=== PATIENT | male | born 1985 | race Caucasian/White ===

== ENCOUNTER 2017-07-11 11:13 | Emergency (ER) | payer OTHER ==
[2017-07-11 11:28] VITALS: BP 142/86; PULSE 73; TEMP 98.5; BMI 30.8
[2017-07-11] MEDS ORDERED: KETOROLAC TROMETHAMINE 60 MG/2 ML VIAL IM ONE (11:44)
--- NOTE | 2017-07-11 11:52 | PDOC ---
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 Pt denies any past history of back pain or trauma. Pt also c/o hives on and off for one week. Pt believes it may be from a supplement he was taking. no SOB or trouble breathing. Occurred: reports: this morning Severity: reports: mild Pain Location: reports: back (low) Modifying Factors: improves with: None Associated Symptoms (Fall): denies symptoms Past History - Past Medical History Allergies/Adverse Reactions: Allergies Allergy/AdvReac Type Severity Reaction Status Date / Time No Known Allergies Allergy Verified 07/11/17 11:28 Home Medications: Ambulatory Orders Cyclobenzaprine HCl [Flexeril 10 mg] 5 mg PO TID PRN #12 tablet 07/11/17 Naproxen [Naprosyn -] 500 mg PO BID PRN #14 tablet 07/11/17 - Psycho/Social/Smoking Cessation Hx Anxiety: No Suicidal Ideation: No Smoking History: Never smoked Have you smoked in the past 12 months: No Information on smoking cessation initiated: No Hx Alcohol Use: No Drug/Substance Use Hx: No Substance Use Type: None Trauma Specific PMHX - Complaint Specific PMHX Arthritis: No Back Injury: No Neck Injury: No Hx Sacro Iliac Joint Dysfunction: No Review of Systems - Review of Systems Able to Perform ROS?: Yes Is the patient limited Nigerien proficient: No Constitutional: No: Symptoms Reported HEENTM: No: Symptoms Reported Respiratory: No: Symptoms reported Cardiac (ROS): No: Symptoms Reported ABD/GI: No: Symptoms Reported : No: Symptoms Reported Musculoskeletal: Yes: See HPI, Back Pain Integumentary: Yes: See HPI *Physical Exam - Vital Signs Last Vital Signs Temp Pulse Resp BP Pulse Ox 98.5 F 73 18 142/86 100 07/11/17 11:15 07/11/17 11:15 07/11/17 11:15 07/11/17 11:15 07/11/17 11:15 - Physical Exam General Appearance: Yes: Nourished, Appropriately Dressed HEENT: positive: EOMI, RAZ, TMs Normal, Pharynx Normal Neck: positive: Supple. negative: Tender Respiratory/Chest: positive: Lungs Clear, Normal Breath Sounds Cardiovascular: positive: Regular Rhythm, Regular Rate Gastrointestinal/Abdominal: positive: Normal Bowel Sounds, Soft Musculoskeletal: positive: Normal Inspection, Decreased Range of Motion (ttp lumbar paraspinal soft tissue neg vetebral tenderness, neg SLR ). 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 pt ambulatory steady gait will give toradol now dc with naprosyn and flexeril for muscle spasm, pt aware to take at bedtime pt will be out of work until cleared by employee health 07/11/17 12:00 *DC/Admit/Observation/Transfer Diagnosis at time of Disposition: Hives Back pain Qualifiers: Back pain location: low back pain Chronicity: acute Back pain laterality: midline Sciatica presence: without sciatica Qualified Code(s): M54.5 - Low back pain - Prescriptions Prescriptions: Cyclobenzaprine HCl [Flexeril 10 mg] 5 mg PO TID PRN #12 tablet PRN Reason: Muscle Spasms Naproxen [Naprosyn -] 500 mg PO BID PRN #14 tablet PRN Reason: Back Pain - Referrals Referrals: Camilo Neves [Primary Care Provider] - - Patient Instructions Additional Instructions: warm heating pad to low back take the naprosyn for pain take the flexeril for muscle spasm you can take a non drowsy antihistamine such as claritin or zyrtec 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
== END 2017-07-11 12:03 | disposition home or self-care (01) ==
LOC: JERFT 11:13
PROC: 3E0233Z Introduction of Anti-inflammatory into Muscle, Percutaneous Approach (ICD-10-PCS; principal; 2017-07-11)
DX: M54.5 Low back pain (principal); L50.9 Urticaria, unspecified
CPT/HCPCS: 99281-25

== ENCOUNTER 2017-09-19 21:05 | Emergency (ER) | payer OTHER ==
[2017-09-19 21:09] VITALS: BP 144/69; PULSE 72; BMI 30.8
--- NOTE | 2017-09-19 22:45 | PDOC ---
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 Now with right lateral ankle edema and pain. Past Medical History: Denies. Allergies: No known allergies Medications: None Family History: Non-contributory Social History: Denies smoking, alcohol use, or IVDU Review of Systems GENERAL/CONSTITUTIONAL: No fever or chills. No weakness. No weight change. HEAD, EYES, EARS, NOSE AND THROAT: No change in vision. No ear pain or discharge. No sore throat. CARDIOVASCULAR: No chest pain or shortness of breath. RESPIRATORY: No cough, wheezing, or hemoptysis. GASTROINTESTINAL: No nausea, vomiting, diarrhea or constipation. No rectal bleeding. GENITOURINARY: No dysuria, frequency, or change in urination. MUSCULOSKELETAL: Right lateral ankle edema . No neck or back pain. SKIN : No rash or easy bruising. NEUROLOGIC: No headache, vertigo, loss of consciousness, or loss of sensation. HEMATOLOGIC/LYMPHATIC: No anemia, easy bleeding, or history of blood clots. ALLERGIC/IMMUNOLOGIC: No hives or skin allergy. No latex allergy. Physical Exam: GENERAL: The patient is awake, alert, and fully oriented, in no acute distress. EYES: Pupils equal, round and reactive to light, extraocular movements intact, sclera anicteric, conjunctiva clear. ENT: Ears normal, nares patent, oropharynx clear without exudates. Moist mucous membranes. No uvula deviation NECK: Normal range of motion, supple without lymphadenopathy, JVD, or masses. LUNGS: Breath sounds equal, clear to auscultation bilaterally. No wheezes, and no crackles. HEART: Regular rate and rhythm, normal S1 and S2 without murmur, rub or gallop. ABDOMEN: Soft, nontender, normoactive bowel sounds. No guarding, no rebound. No masses. No bruising or abrasions MUSCULOSKELETAL: Decreased ROM with associated pain, no bruising, no erythema, mild edema. No clubbing or cyanosis. No cords, erythema, or tenderness. No CVA Tenderness with fist. NEUROLOGICAL: Cranial nerves II through XII grossly intact. Normal speech, normal gait. SKIN: Warm, Dry, normal turgor, no rashes or lesions noted. Edema and erythema to the right lateral ankle. Past History - Past Medical History Allergies/Adverse Reactions: Allergies Allergy/AdvReac Type Severity Reaction Status Date / Time No Known Allergies Allergy Verified 09/19/17 21:09 Home Medications: Ambulatory Orders Ibuprofen [Motrin -] 400 mg PO QID #28 tablet 09/19/17 Other medical history: denies - Suicide/Smoking/Psychosocial Hx Smoking History: Never smoked Have you smoked in the past 12 months: No Hx Alcohol Use: No Drug/Substance Use Hx: No Substance Use Type: None *Physical Exam - Vital Signs Last Vital Signs Temp Pulse Resp BP Pulse Ox 72 18 144/69 99 09/19/17 21:07 09/19/17 21:07 09/19/17 21:07 09/19/17 21:07 ED Treatment Course - RADIOLOGY Radiology Studies Ordered: Category Date Time Status ANKLE & FOOT-RIGHT* [RAD] Stat Radiology 09/19/17 21:36 Taken Medical Decision Making - Medical Decision Making 09/19/17 22:45 A/P: Patient with right ankle injury, there is edema to right lateral ankle without bruising or erythema. Unable to ambulate with a limp, Carl wrap and air placed on, x-ray is negative for acute fracture. Patient to ice and elevate when at rest, follow-up with orthopedics in one week if pain persists. *DC/Admit/Observation/Transfer Diagnosis at time of Disposition: Ankle injury Qualifiers: Encounter type: initial encounter Laterality: right Qualified Code(s): S99.911A - Unspecified injury of right ankle, initial encounter; S99.911A - Unspecified injury of right ankle, initial encounter - Discharge Dispostion Disposition: HOME Condition at time of disposition: Good Admit: No - Prescriptions Prescriptions: Ibuprofen [Motrin -] 400 mg PO QID #28 tablet - Referrals Referrals: Brett Hernández MD [Staff Physician] - - Patient Instructions Printed Discharge Instructions: DI for Ankle Sprain Additional Instructions: 1. Please return to the emergency department with any redness, swelling, increased pain, or any other concerns. 2. Keep splint on. 3. Please follow up in the office of Dr. Hernández within a week if pain persists. 4. No weightbearing 5. Ice and elevate when at rest. 6. Motrin for pain Must be cleared by occupational medicine to return to full duty
[2017-09-19] MEDS ORDERED: IBUPROFEN 600 MG TABLET (FP) PO ONE ×2 (22:48→22:49)
== END 2017-09-19 22:51 | disposition home or self-care (01) ==
LOC: JERFT 21:05
PROC: 2W3QX1Z Immobilization of Right Lower Leg using Splint (ICD-10-PCS; principal; 2017-09-19)
DX: S99.811A Other specified injuries of right ankle, initial encounter (principal); X50.1XXA Overexertion from prolonged static or awkward postures, initial encounter; V68.4XXA Person boarding or alighting a heavy transport vehicle injured in noncollision transport accident, initial encounter; Y92.488 Other paved roadways as the place of occurrence of the external cause; Y93.89 Activity, other specified; Y99.0 Civilian activity done for income or pay
CPT/HCPCS: 73610-TC-RT; 73630-TC-RT; 99281-25

== ENCOUNTER 2018-05-04 01:08 | Emergency (ER) | payer OTHER ==
[2018-05-04 01:12] VITALS: BP 135/80; PULSE 71; TEMP 98.1; BMI 30.8
[2018-05-04] MEDS ORDERED: KETOROLAC TROMETHAMINE 60 MG/2 ML VIAL IM ONE (01:56)
[2018-05-04] MEDS ORDERED: KETOROLAC TROMETHAMINE 60 MG/2 ML VIAL ONE (01:58)
--- NOTE | 2018-05-04 02:01 | PDOC ---
History of Present Illness - General Chief Complaint: Pain, Acute Stated Complaint: INJURY TO KNEE Time Seen by Provider: 05/04/18 01:36 History Source: Patient - History of Present Illness Initial Comments: 05/04/18 01:55 32 year old male with right buttocks pain after suddenly getting of the couch from laying. denies numbness or tingling to lower extremity. denies pain to the lower extremity 05/04/18 02:03 Past History - Past Medical History Allergies/Adverse Reactions: Allergies Allergy/AdvReac Type Severity Reaction Status Date / Time No Known Allergies Allergy Verified 05/04/18 01:10 Home Medications: Ambulatory Orders Ibuprofen [Motrin -] 400 mg PO QID #28 tablet 09/19/17 - Suicide/Smoking/Psychosocial Hx Smoking History: Never smoked Have you smoked in the past 12 months: No Information on smoking cessation initiated: No Hx Alcohol Use: No Drug/Substance Use Hx: No Substance Use Type: None *Physical Exam - Vital Signs Last Vital Signs Temp Pulse Resp BP Pulse Ox 98.1 F 71 20 135/80 99 05/04/18 01:10 05/04/18 01:10 05/04/18 01:10 05/04/18 01:10 05/04/18 01:10 - Physical Exam General Appearance: Yes: Appropriately Dressed Musculoskeletal: positive: Normal Inspection. negative: Vertebral Tenderness Extremity: positive: Normal Capillary Refill, Normal Inspection, Normal Range of Motion, Other (full rom of hip. pain to right buttocks) Integumentary: positive: Normal Color, Dry, Warm Neurologic: positive: Fully Oriented, Alert, Normal Mood/Affect Medical Decision Making - Medical Decision Making 05/04/18 02:03 muscle strain *DC/Admit/Observation/Transfer Diagnosis at time of Disposition: Muscle strain of right gluteal region Qualifiers: Encounter type: initial encounter Qualified Code(s): S76.011A - Strain of muscle, fascia and tendon of right hip, initial encounter - Discharge Dispostion Disposition: HOME - Referrals Referrals: Jaylen Dorsey MD [Staff Physician] - - Patient Instructions Printed Discharge Instructions: DI for Muscle Strain Additional Instructions: start light stretches follow up with [facility] doctor as soon as possible . take flexeril as prescribed, take ibuprofen 600mg every 6 hours as needed for pain - Post Discharge Activity Forms/Work/School Notes: Back to Work
== END 2018-05-04 02:08 | disposition home or self-care (01) ==
LOC: JER 01:08
PROC: 3E0233Z Introduction of Anti-inflammatory into Muscle, Percutaneous Approach (ICD-10-PCS; principal; 2018-05-04)
DX: S76.011A Strain of muscle, fascia and tendon of right hip, initial encounter (principal); X50.0XXA Overexertion from strenuous movement or load, initial encounter; Y93.89 Activity, other specified; Y92.89 Other specified places as the place of occurrence of the external cause; Y99.0 Civilian activity done for income or pay
CPT/HCPCS: 99283-25

== ENCOUNTER 2018-10-15 15:51 | Emergency (ER) | payer OTHER ==
[2018-10-15 16:07] VITALS: BP 137/70; PULSE 63; TEMP 97.6; BMI 30.8
[2018-10-15] MEDS ORDERED: IBUPROFEN 600 MG TABLET (FP) PO ONE ×2 (16:26→16:30)
--- NOTE | 2018-10-15 16:26 | PDOC ---
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 His calf became swollen. He denies decreased ROM of right lower extremity, redness and warmth to affected extremity, smoking history. Vital signs on arrival are within normal limits. REVIEW OF SYSTEMS: GENERAL/CONSTITUTIONAL: No fever/chills. No weakness. No weight change. MUSCULOSKELETAL: +right calf pain. No neck or back pain. SKIN: No rash or easy bruising. NEUROLOGIC: No headache, vertigo, loss of consciousness, or loss of sensation. PHYSICAL EXAM: VITAL_SIGNS: within normal limits GENERAL_APPEARANCE: alert, cooperative, mild obvious discomfort. MENTAL_STATUS: speech clear, oriented X 3, responds appropriately to questions. NEURO: motor intact and sensory intact in injured extremity. EXTREMITIES: Visible swelling to right calf muscle. No bulging or deformities to right calf or right Achilles. Full dorsi and plantar flexion of right foot without difficulty. No erythema or warmth to affected calf. SKIN: warm, dry, good color. Past History - Past Medical History Allergies/Adverse Reactions: Allergies Allergy/AdvReac Type Severity Reaction Status Date / Time No Known Allergies Allergy Verified 10/15/18 16:07 Home Medications: Ambulatory Orders Ibuprofen [Motrin -] 400 mg PO QID #28 tablet 09/19/17 COPD: No - Immunization History Immunization Up to Date: Yes - Suicide/Smoking/Psychosocial Hx Smoking History: Never smoked Have you smoked in the past 12 months: No Information on smoking cessation initiated: No Hx Alcohol Use: No Drug/Substance Use Hx: No Substance Use Type: None *Physical Exam - Vital Signs Last Vital Signs Temp Pulse Resp BP Pulse Ox 97.6 F 63 16 137/70 97 10/15/18 16:05 10/15/18 16:05 10/15/18 16:05 10/15/18 16:05 10/15/18 16:05 Medical Decision Making - Medical Decision Making A/P: 32 y/o afebrile male with a right calf strain. Plan is as follows: 1. PO ibuprofen 2. SHANKAR bandage Suggested RICE instructions and Ibuprofen every 6 hour for pain. Suggested he f /u with ortho tomorrow before returning to work. The patient verbalizes understanding of all instructions, has no further questions and is awaiting discharge. *DC/Admit/Observation/Transfer Diagnosis at time of Disposition: Strain of calf muscle Qualifiers: Encounter type: initial encounter Laterality: right Qualified Code(s): S86.811A - Strain of other muscle(s) and tendon(s) at lower leg level, right leg , initial encounter - Discharge Dispostion Disposition: HOME Condition at time of disposition: Good - Referrals Referrals: Jaylen Dorsey MD [Staff Physician] - Call tomorrow - Patient Instructions Printed Discharge Instructions: DI for Calf Muscle Strain, How To Perform RICE (Rest, Ice, Compress, Elevate) Additional Instructions: Discharge Instructions: -Apply ice and heat to the affected area -Take ibuprofen every 6 hours with food for pain -Follow up with your orthopedic doctor or with Dr. Dorsey tomorrow - Post Discharge Activity Forms/Work/School Notes: Back to Work
== END 2018-10-15 16:47 | disposition home or self-care (01) ==
LOC: JERFT 15:51
DX: S86.111A Strain of other muscle(s) and tendon(s) of posterior muscle group at lower leg level, right leg, initial encounter (principal); X50.9XXA Other and unspecified overexertion or strenuous movements or postures, initial encounter; Y93.F2 Activity, caregiving, lifting; Y92.89 Other specified places as the place of occurrence of the external cause; Y99.0 Civilian activity done for income or pay
CPT/HCPCS: 99281-25

== ENCOUNTER 2018-12-21 13:14 | Emergency (ER) | payer BC, OTHER ==
[2018-12-21 13:23] VITALS: BMI 31.4
--- NOTE | 2018-12-21 13:27 | PDOC ---
Attending Attestation - Resident Resident Name: Alban Espinosa - ED Attending Attestation I have performed the following: I have examined & evaluated the patient, The case was reviewed & discussed with the resident, I agree w/resident's findings & plan, Exceptions are as noted <Eileen Abdalla - Last Filed: 12/21/18 13:27> - HPI HPI: 12/21/18 13:50 The patient is a 33 year old male (YFD), with no significant past medical history, who presents to the emergency department with, palpitations. As per patient, he woke up this morning feeling palpitations he attributed to anxiety thus, he went about his day. 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 Patient notes he takes testosterone supplements and normally drinks red bull as a pre-workout (did not drink redbull today). He denies any recent diaphoresis or shortness of breath. He denies any recent fevers, chills, headache or dizziness. He denies any recent nausea, vomit, diarrhea or constipation. He denies any recent dysuria, frequency, urgency or hematuria. Allergies: NKDA <Fernando Everett - Last Filed: 12/21/18 14:02> Attestations - Attestations 12/21/18 13:50 Documentation prepared by Fernando Everett, acting as medical device for Eileen Abdalla MD. <Fernando Everett - Last Filed: 12/21/18 14:02>
--- NOTE | 2018-12-21 13:38 | PDOC ---
History of Present Illness - General Chief Complaint: Irregular Heart Beat Stated Complaint: Palpitations Time Seen by Provider: 12/21/18 13:22 History Source: Patient Exam Limitations: No Limitations - History of Present Illness Initial Comments: 12/21/18 13:34 The patient is a 33M with no PMH who presents to the ER after feeling palpitations this morning. The patient states that he woke up and was not "feeling himself". He went about his normal daily activities and was at the gym. While at the gym, he noted that his "fit bit" was reading abnormal pulses. When he checked his pulses himself, he noticed the irregularity and then decided to come to the ER. He denies any drug, alcohol, or tobacco use. He denies frequent coffee or stimulant drink use. He admits to using 500mg testosterone IM weekly for the past month to boost muscle growth. He denies palpitations, lightheadedness, syncope, CP, SOB, fever, chills, nausea, vomiting , cough. Past History - Past Medical History Allergies/Adverse Reactions: Allergies Allergy/AdvReac Type Severity Reaction Status Date / Time No Known Allergies Allergy Verified 10/15/18 16:07 Home Medications: Ambulatory Orders NK [No Known Home Medication] 12/21/18 COPD: No - Immunization History Immunization Up to Date: Yes - Suicide/Smoking/Psychosocial Hx Smoking History: Never smoked Have you smoked in the past 12 months: No Hx Alcohol Use: No Drug/Substance Use Hx: No Substance Use Type: None Review of Systems - Review of Systems Able to Perform ROS?: Yes Comments:: 12/21/18 15:29 GENERAL/CONSTITUTIONAL: No fever or chills. No weakness. HEAD, EYES, EARS, NOSE AND THROAT: No change in vision. No ear pain or discharge. No sore throat. CARDIOVASCULAR: Positive for palpitations. No chest pain or lightheadedness. RESPIRATORY: No cough, wheezing, shortness of breath, or hemoptysis. GASTROINTESTINAL: No nausea, vomiting, diarrhea, constipation, or abdominal pain. GENITOURINARY: No dysuria, frequency, hematuria, or change in urination. MUSCULOSKELETAL: No joint or muscle swelling or pain. No neck or back pain. SKIN: No rash or lesions. NEUROLOGIC: No headache, numbness, tingling, focal weakness, loss of consciousness, or change in strength/sensation. ENDOCRINE: No increased thirst. No abnormal weight change. HEMATOLOGIC/LYMPHATIC: No anemia, easy bleeding, or history of blood clots. ALLERGIC/IMMUNOLOGIC: No hives or skin allergy. Is the patient limited Nepali proficient: No *Physical Exam - Vital Signs Last Vital Signs Temp Pulse Resp BP Pulse Ox 98.1 F 18 116/78 98 12/21/18 13:19 12/21/18 13:19 12/21/18 13:19 12/21/18 13:19 - Physical Exam Comments: 12/21/18 16:02 GENERAL: Well developed, well nourished. Awake and alert. No acute distress. HEENT: Normocephalic, atraumatic. Hearing grossly normal. Moist mucous membranes. PERRLA, EOMI. No conjunctival pallor. Sclera are non-icteric. NECK: Supple. Full ROM. No JVD. CARDIOVASCULAR: Irregularly irregular rate and rhythm. No murmurs, rubs, or gallops. PULMONARY: No evidence of respiratory distress. Lungs clear to auscultation bilaterally. No wheezing, rales or rhonchi. ABDOMINAL: Soft. Non-tender. Non-distended. No rebound or guarding. MUSCULOSKELETAL: Normal range of motion at all joints. No bony deformities or tenderness. EXTREMITIES: No cyanosis. No clubbing. No edema. No calf tenderness or swelling. SKIN: Warm and dry. Normal capillary refill. No rashes. No jaundice. NEUROLOGICAL: Alert, awake, appropriate. Cranial nerves 2-12 grossly intact. Normal speech. Gait is normal without ataxia. PSYCHIATRIC: Cooperative. Good eye contact. Appropriate mood and affect. Moderate Sedation - Procedure Monitoring Vital Signs: Procedure Monitoring Vital Signs Temperature 98.1 F 12/21/18 13:19 Pulse Rate Respiratory Rate 18 12/21/18 13:19 Blood Pressure 116/78 12/21/18 13:19 O2 Sat by Pulse Oximetry (%) 98 12/21/18 13:19 Procedures - Additional Procedures Additional Procedures: cardioversion/defib (Electrical cardioversion done with 120J from a-fib to NSR) Heart Score/ECG Review #1 Compared to previous ECG there are: Changes noted 12/21/18 16:03 A-fib vent rate 145 ND - QRS 92 QTc 425 No STD or DAMON A-fib with RVR No p-waves noted CHANGED FROM PRIOR ED Treatment Course - LABORATORY CBC & Chemistry Diagram: 12/21/18 13:23 12/21/18 13:23 - RADIOLOGY Radiology Studies Ordered: Category Date Time Status CHEST X-RAY PORTABLE* [RAD] Stat Radiology 12/21/18 13:24 Ordered Medical Decision Making - Medical Decision Making 12/21/18 16:03 The patient is a 33M with no PMH who presents to the ER with complaints of palpitations, noted to be in a-fib, new onset since this morning. Labs unremarkable. EKG shows a-fib. CXR WNL on preliminary read. Procainamide attempted for chemical cardioversion without success. Consent obtained for electrical cardioversion. Will sedate with propofol. Pt requesting for me to speak with operations consultant friend. Pending phone call. Will set up for cardioversion. 12/21/18 17:18 Pt tolerated cardioversion at 120J with 120mg propofol in 40mg pushes. Pt converted to sinus rhythm seen on multiple monitors. Pt now waking up. 12/21/18 17:28 Pt awake and alert. Will d/c with cardiology f/u. *DC/Admit/Observation/Transfer Diagnosis at time of Disposition: A-fib Qualifiers: Atrial fibrillation type: unspecified Qualified Code(s): I48.91 - Unspecified atrial fibrillation - Discharge Dispostion Disposition: HOME Condition at time of disposition: Stable Decision to Admit order: No - Referrals Referrals: Chucho Bright MD [Staff Physician] - - Patient Instructions Printed Discharge Instructions: Atrial Fibrillation Additional Instructions: Please follow up with your primary care physician in 2-3 days. Also follow up with the operations consultant within 2-3 days. Call tomorrow to make an appointment for Tuesday. Please return to the ER if you have any signs or symptoms of chest pain, shortness of breath, uncontrollable fever, chills, nausea, vomiting, numbness, tingling, or weakness in any part of your body, changes in vision, or slurred speech. Please return to the ER if symptoms persist, worsen, or new symptoms arise. - Post Discharge Activity
[2018-12-21] MEDS ORDERED: SODIUM CHLORIDE 0.9% 1000 ML INFUS.BAG IV ONE (13:55)
[2018-12-21] MEDS ORDERED: PROCAINAMIDE HCL 1,000 MG in DEXTROSE 5%-WATER - 48 ML IVPB ONE (13:55)
[2018-12-21 14:12] LABS: BASO % 0.7 % (0-2.0); EOS % 0.7 % (0-4.5); HEMATOCRIT 50.9 % (35.4-49); HEMOGLOBIN 17.5 GM/dL (11.7-16.9); INR 1.09 (0.83-1.09); LYMPH % 15.9 % (8-40); MCH 29.6 pg (25.7-33.7); MCHC 34.4 g/dl (32.0-35.9); MEAN CELL VOLUME 86.1 fl (80-96); MEAN PLT VOLUME 7.9 fl (7.5-11.1); MONO % 8.8 % (3.8-10.2); NEUT % 73.9 % (42.8-82.8); PLATELET COUNT 221 K/MM3 (134-434); PROTHROMBIN TIME (PATIENT) 12.9 SEC (9.7-13.0); RBC 5.92 M/mm3 (4.00-5.60); RDW 13.2 % (11.9-15.9); WHITE BLOOD COUNT 7.7 K/mm3 (4.0-10.0)
[2018-12-21 14:36] LABS: ALBUMIN 4.1 g/dl (3.4-5.0); ALK PHOS 51 U/L (45-117); ANION GAP 5 MMOL/L (8-16); BILIRUBIN,TOTAL 0.7 mg/dL (0.2-1); BLOOD UREA NITROGEN 17 mg/dL (7-18); CALCIUM 9.3 mg/dL (8.5-10.1); CHLORIDE 105 mmol/L (98-107); CO2 28 mmol/L (21-32); CREATININE 1.3 mg/dL (0.55-1.3); GLUCOSE,RANDOM 80 mg/dL (74-106); MAGNESIUM 2.4 mg/dL (1.8-2.4); POTASSIUM 4.7 mmol/L (3.5-5.1); SGOT/AST 38 U/L (15-37); SGPT/ALT 57 U/L (13-61); SODIUM 138 mmol/L (136-145); TOT PROT 7.4 g/dl (6.4-8.2)
[2018-12-21] MEDS ORDERED: dilTIAZem HCL 50 MG/10 ML - 10 ML VIAL IVPUSH ONE (16:14)
[2018-12-21] MEDS ORDERED: dilTIAZem HCL 125 MG/25 ML - 25 ML VIAL ONE (16:19)
[2018-12-21 16:37] VITALS: PULSE 116; TEMP 98
[2018-12-21] MEDS ORDERED: PROPOFOL 1,000,000 MCG/100 ML VIAL ONE (16:48)
[2018-12-21 17:10] VITALS: BP 117/82
[2018-12-21] MEDS ORDERED: PROPOFOL 200 MG/20 ML VIAL IVPUSH ONE ×3 (17:18→17:19)
--- NOTE | 2018-12-22 11:57 | EKG ---
Test Reason : Blood Pressure : / mmHG Vent. Rate : 145 BPM Atrial Rate : 375 BPM P-R Int : 000 ms QRS Dur : 092 ms QT Int : 274 ms P-R-T Axes : 000 075 005 degrees QTc Int : 425 ms ATRIAL FIBRILLATION WITH RAPID VENTRICULAR RESPONSE ABNORMAL ECG WHEN COMPARED WITH ECG OF 14-JUL-2018 10:49, ATRIAL FIBRILLATION HAS REPLACED SINUS RHYTHM VENT. RATE HAS INCREASED BY 90 BPM Confirmed by LEON COTTON, MATT ([id number]) on 12/22/2018 11:57:24 AM Referred By: Confirmed By:MATT QUINTERO MD
== END 2018-12-21 17:33 | disposition home or self-care (01) ==
LOC: JER 13:14
PROC: 5A2204Z Restoration of Cardiac Rhythm, Single (ICD-10-PCS; principal; 2018-12-21)
PROC: 3E033RZ Introduction of Antiarrhythmic into Peripheral Vein, Percutaneous Approach (ICD-10-PCS; 2018-12-21)
PROC: 3E033GC Introduction of Other Therapeutic Substance into Peripheral Vein, Percutaneous Approach (ICD-10-PCS; 2018-12-21)
PROC: 3E033FZ Introduction of Intracirculatory Anesthetic into Peripheral Vein, Percutaneous Approach (ICD-10-PCS; 2018-12-21)
DX: I48.91 Unspecified atrial fibrillation (principal)
CPT/HCPCS: 36415; 71045-TC-FY; 80053; 82550; 82553; 83735; 84443; 84484; 85025; 85610; 93005; 93010; 99284-25; J7030

== ENCOUNTER 2019-02-07 15:01 | Emergency (ER) | payer OTHER, BC ==
[2019-02-07 15:18] VITALS: BP 122/63; PULSE 66; TEMP 98; BMI 30.8
[2019-02-07] MEDS ORDERED: DIPHTH,PERTUSS(ACELL),TET 0.5 ML DISP.SYRIN IM ONE ×2 (16:28→16:31)
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
== END 2019-02-07 16:45 | disposition home or self-care (01) ==
LOC: JERFT 15:01
PROC: 3E0234Z Introduction of Serum, Toxoid and Vaccine into Muscle, Percutaneous Approach (ICD-10-PCS; principal; 2019-02-07)
DX: S61.452A Open bite of left hand, initial encounter (principal); S61.451A Open bite of right hand, initial encounter; W55.01XA Bitten by cat, initial encounter; X02.8XXA Other exposure to controlled fire in building or structure, initial encounter; Y93.K9 Activity, other involving animal care; Y92.89 Other specified places as the place of occurrence of the external cause; Y99.0 Civilian activity done for income or pay
CPT/HCPCS: 90715; 99281-25

== ENCOUNTER 2019-05-16 12:06 | Emergency (ER) | payer OTHER, BC ==
[2019-05-16 12:26] VITALS: BP 148/75; PULSE 73; TEMP 98.3; BMI 31.4
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
== END 2019-05-16 13:18 | disposition home or self-care (01) ==
LOC: JERFT 12:06
DX: S96.911A Strain of unspecified muscle and tendon at ankle and foot level, right foot, initial encounter (principal); X58.XXXA Exposure to other specified factors, initial encounter; Y93.89 Activity, other specified; Y92.89 Other specified places as the place of occurrence of the external cause; Y99.0 Civilian activity done for income or pay
CPT/HCPCS: 73610-TC-RT-FY; 99281-25

== ENCOUNTER 2021-07-02 21:31 | Emergency (ER) | payer OTHER ==
[2021-07-02 21:58] VITALS: BP 135/68; PULSE 51; TEMP 97; BMI 30.8
== END 2021-07-02 22:42 | disposition left against medical advice (07) ==
LOC: JER 21:31
DX: M25.561 Pain in right knee (principal); M25.562 Pain in left knee
CPT/HCPCS: 99281-25

== ENCOUNTER → 2021-07-14 | Day surgery (SDC) | payer OTHER | END | disposition home or self-care (01) | LOC: JRADIR 12:38 | PROVIDERS: ATTEND Specialist | PROC: BQ18YZZ Fluoroscopy of Left Knee using Other Contrast (ICD-10-PCS; principal; 2021-07-14) | PROC: BQ3 Imaging, Non-Axial Lower Bones, Magnetic Resonance Imaging (MRI) (ICD-10-PCS; 2021-07-14) | DX: M25.562 Pain in left knee (principal) | CPT/HCPCS: 27369; 70130-TC-FY; 73580-TC-FY; 73722-TC; 77002-TC-FY ==